=== PATIENT | male | born 2000 | race Hispanic/Latino ===

== ENCOUNTER 2019-12-28 14:16 | Emergency (ER) | payer MEDICAID, MEDICARE ==
[2019-12-28 15:44] VITALS: BP 142/74
--- NOTE | 2019-12-28 15:48 | Event Note ---
ED Screening Note Date of service: 12/28/19 Time: 15:45 ED Screening Note: 19 y/o male comes in for Lungs burning and cough last night. Has been smoking for 13 years. Hx/o asthma and has been using his inhaler. Current takes psych meds hx/o PTSD, Bipolar, anxiety and depression. This initial assessment/diagnostic orders/clinical plan/treatment(s) is/are subject to change based on patients health status, clinical progression and re- assessment by fellow clinical providers in the ED. Further treatment and workup at subsequent clinical providers discretion. Patient/guardian urged not to elope from the ED as their condition may be serious if not clinically assessed and managed. Initial orders include:
--- NOTE | 2019-12-28 17:43 | XRay Report ---
CHEST 2 VIEWS INDICATION / CLINICAL INFORMATION: sob,cough and rales. COMPARISON: Chest x-ray 11/02/2016 FINDINGS: SUPPORT DEVICES: None. HEART / MEDIASTINUM: No significant abnormality. LUNGS / PLEURA: No significant pulmonary or pleural abnormality. No pneumothorax. ADDITIONAL FINDINGS: No significant additional findings. IMPRESSION: 1. No acute findings. Signer Name: Juan Ramon Payne MD Signed: 12/28/2019 5:39 PM Workstation Name: [id number]
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
[2019-12-28] MEDS ORDERED: IPRATROPIUM/ALBUTEROL SULFATE 3 ML AMPUL.NEB IH SCH (20:00)
== END 2019-12-28 18:43 | disposition home or self-care (01) ==
LOC: ED 14:16
DX: F17.210 Nicotine dependence, cigarettes, uncomplicated (principal); I10 Essential (primary) hypertension; F31.9 Bipolar disorder, unspecified; Z98.890 Other specified postprocedural states; Z79.899 Other long term (current) drug therapy; Z88.8 Allergy status to other drugs, medicaments and biological substances; Z88.0 Allergy status to penicillin
CPT/HCPCS: 71046; 93005; 93010; 94640; 94644

== ENCOUNTER 2021-05-22 03:31 | Emergency (ER) | payer MEDICARE ==
[2021-05-22] MEDS ORDERED: METOCLOPRAMIDE 10 MG/2 ML INJ IV ONE (04:31)
[2021-05-22] MEDS ORDERED: hydrALAZINE 20 MG/1 ML INJ IV ONE (04:31)
[2021-05-22] MEDS ORDERED: diphenhydrAMINE 50 MG/ML VIAL IV ONE (04:31)
[2021-05-22 05:11] VITALS: BP 149/94
--- NOTE | 2021-05-22 05:11 | Cat Scan Report ---
CT HEAD WITHOUT CONTRAST INDICATION / CLINICAL INFORMATION: Patient complains of a headache, Hx of Hypertension. TECHNIQUE: All CT scans at this location are performed using CT dose reduction for ALARA by means of automated e xposure control. COMPARISON: None available. FINDINGS: No acute intracranial hemorrhage. There is bilateral maxillary sinus disease. Ventricles are normal i n size without midline shift or mass effect. Visualized orbits appear normal. ADDITIONAL FINDINGS: None. IMPRESSION: 1. No acute intracranial abnormality. Signer Name: Duran Pedraza MD Signed: 05/22/2021 5:07 AM Workstation Name: [id number]
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
== END 2021-05-22 06:38 | disposition home or self-care (01) ==
LOC: ED 03:31
DX: J32.9 Chronic sinusitis, unspecified (principal); R51.9 Headache, unspecified; I10 Essential (primary) hypertension; F31.9 Bipolar disorder, unspecified; F41.9 Anxiety disorder, unspecified; F17.200 Nicotine dependence, unspecified, uncomplicated; Z79.899 Other long term (current) drug therapy; Z98.890 Other specified postprocedural states; Z88.0 Allergy status to penicillin; Z88.8 Allergy status to other drugs, medicaments and biological substances
CPT/HCPCS: 70450; 96374; 96375; 99284; J1200; J2765